=== PATIENT | female | born 1940 | race Caucasian/White ===

== ENCOUNTER 2019-02-19 08:44 | Observation (INO) | payer MEDICARE, BC ==
[2019-02-19 09:57] LABS: ADD MAN DIFF? NO
[2019-02-19] MEDS: ASPIRIN 325 MG TAB PO (09:57)
[2019-02-19] MEDS: NITROGLYCERIN 2% 1 GM OINT PKT TD (09:57)
[2019-02-19 10:03] LABS: BASOPHIL # 0.1 10^3/ul (0.0-0.1); BASOPHILS % 0.9 % (0.0-2.0); EOSINOPHILS % 0.7 % (0.0-7.0); HEMATOCRIT 37.1 % (37.0-47.0); HEMOGLOBIN 12.5 g/dl (12.0-16.0); LYMPHOCYTES % 18.2 % (15.0-51.0); MEAN CORPUSCULAR HEMOGLOBIN 28.5 pg (29.0-33.0); MEAN CORPUSCULAR HGB CONC 33.7 g/dl (32.0-37.0); MEAN CORPUSCULAR VOLUME 84.5 fl (82.0-101.0); MEAN PLATELET VOLUME 9.3 fl (7.4-10.4); MONOCYTE # 0.4 10^3/ul (0.3-0.9); MONOCYTES % 7.7 % (0.0-11.0); NEUTROPHIL # 4.1 10^3/ul (1.6-7.5); PLATELET COUNT 204 10^3/UL (140-415); RED BLOOD COUNT 4.39 10^6/ul (4.20-5.40); RED CELL DISTRIBUTION WIDTH 11.9 % (11.5-14.5)
[2019-02-19 10:03] LABS: WHITE BLOOD COUNT 5.7 10^3/ul (4.8-10.8)
[2019-02-19 10:20] LABS: ANION GAP 9 (5-13); BLOOD UREA NITROGEN 17 mg/dl (7-20); CARBON DIOXIDE 26 mmol/L (21-31); CHLORIDE 100 mmol/L (97-110); CREATININE 1.09 mg/dl (0.44-1.00); GLUCOSE 146 mg/dl (70-220); POTASSIUM 3.7 mmol/L (3.5-5.1); SODIUM 135 mmol/L (135-144)
[2019-02-19 10:31] LABS: TROPONIN-I < 0.012 ng/ml (0.000-0.120)
[2019-02-19] MEDS ORDERED: ONDANSETRON 4 MG INJ IV ×2 (13:30→16:30)
[2019-02-19 16:13] LABS: CREATINE KINASE 65 IU/L (23-200)
[2019-02-19 16:26] LABS: CK INDEX 0.8; CK-MB 0.49 ng/ml (0.0-2.4); TROPONIN-I < 0.012 ng/ml (0.000-0.120)
[2019-02-19] MEDS ORDERED: LORAZEPAM 2 MG INJ IV (16:30)
[2019-02-19] MEDS ORDERED: NACL 0.9% 3 ML SYG IV (16:30)
[2019-02-19] MEDS ORDERED: DOCUSATE SODIUM 100 MG CAP PO (16:30)
[2019-02-19] MEDS ORDERED: ACETAMINOPHEN 325 MG TAB PO ×2 (16:30→17:00)
[2019-02-19] MEDS ORDERED: HYDROCODONE/APAP (5/325) TAB PO (16:30)
[2019-02-19] MEDS ORDERED: NITROGLYCERIN (SL) 0.4 MG TAB SL (16:30)
[2019-02-19] MEDS ORDERED: hydrALAzine 20 MG INJ IV (16:30)
[2019-02-19] MEDS ORDERED: MAGNESIUM HYDROXIDE 30ML CUP PO (16:30)
[2019-02-19] MEDS ORDERED: ALBUTEROL/IPRATROPIUM (NEB) 3 ML AMP HHN (16:30)
[2019-02-19] MEDS ORDERED: GLUCAGON 1 MG INJ IM (17:00)
[2019-02-19] MEDS ORDERED: INSULIN ASPART [NOVOLOG] 3 ML PEN SC (17:00)
[2019-02-19] MEDS ORDERED: GLUCOSE GEL 15 GRAM TUBE PO ×2 (17:00)
[2019-02-19] MEDS ORDERED: GLUCOSE GEL 15 GRAM TUBE BUCCAL (17:00)
[2019-02-19] MEDS ORDERED: DEXTROSE 50% 50 ML SYRINGE IV ×2 (17:00)
[2019-02-19] MEDS: INSULIN ASPART [NOVOLOG] 3 ML PEN SC ×2 (17:31→20:45)
[2019-02-19 17:58] LABS: FREE T4 (FREE THYROXINE) 0.95 ng/dl (0.78-2.44)
[2019-02-19] MEDS: SOD CHLORIDE 0.45% 1,000 ML IV (18:15)
[2019-02-19] MEDS: RANITIDINE 150 MG TAB PO (20:44)
[2019-02-19] MEDS: INSULIN GLARGINE [LANTus] (100 UNITS/ML) SYG SC (20:49)
[2019-02-19 22:30] LABS: CREATINE KINASE 63 IU/L (23-200)
[2019-02-19 22:41] LABS: TROPONIN-I < 0.012 ng/ml (0.000-0.120)
[2019-02-19 23:00] LABS: CK INDEX 0.9; CK-MB 0.56 ng/ml (0.0-2.4)
[2019-02-20] MEDS: ACCU-CHEK XX (02:00)
[2019-02-20 05:32] LABS: ADD MAN DIFF? NO
[2019-02-20 05:43] LABS: BASOPHILS % 0.6 % (0.0-2.0); EOSINOPHILS # 0.2 10^3/ul (0.0-0.5); EOSINOPHILS % 3.7 % (0.0-7.0); HEMATOCRIT 34.2 % (37.0-47.0); HEMOGLOBIN 11.3 g/dl (12.0-16.0); LYMPHOCYTES # 1.6 10^3/ul (0.8-2.9); LYMPHOCYTES % 30.4 % (15.0-51.0); MEAN CORPUSCULAR HEMOGLOBIN 27.9 pg (29.0-33.0); MEAN CORPUSCULAR VOLUME 84.4 fl (82.0-101.0); MEAN PLATELET VOLUME 9.6 fl (7.4-10.4); MONOCYTE # 0.5 10^3/ul (0.3-0.9); NEUTROPHIL # 2.9 10^3/ul (1.6-7.5); NEUTROPHILS % 55.1 % (39.0-77.0); PLATELET COUNT 191 10^3/UL (140-415); RED BLOOD COUNT 4.05 10^6/ul (4.20-5.40); RED CELL DISTRIBUTION WIDTH 11.9 % (11.5-14.5)
[2019-02-20 05:43] LABS: WHITE BLOOD COUNT 5.2 10^3/ul (4.8-10.8)
[2019-02-20] MEDS: SOD CHLORIDE 0.45% 1,000 ML IV ×2 (05:47→08:19)
[2019-02-20 06:13] LABS: ANION GAP 4 (5-13); BLOOD UREA NITROGEN 20 mg/dl (7-20); CALCIUM 10.2 mg/dl (8.4-10.2); CARBON DIOXIDE 28 mmol/L (21-31); CHLORIDE 102 mmol/L (97-110); CHOL/HDL RATIO 3.6 RATIO; CHOLESTEROL 155 mg/dl (100-200); CREATININE 0.98 mg/dl (0.44-1.00); GLUCOSE 115 mg/dl (70-220); HDL CHOLESTEROL 42 mg/dl (33-92); LDL CHOLESTEROL,CALCULATED 83 mg/dl; MAGNESIUM 1.5 mg/dl (1.7-2.5); PHOSPHORUS 3.4 mg/dl (2.5-4.9); POTASSIUM 3.7 mmol/L (3.5-5.1); SODIUM 134 mmol/L (135-144); TRIGLYCERIDES 148 mg/dl (0-149)
[2019-02-20] MEDS: INSULIN ASPART [NOVOLOG] 3 ML PEN SC ×2 (08:00→12:16)
[2019-02-20] MEDS: AMLODIPINE 10 MG TAB PO ×2 (08:16→09:00)
[2019-02-20] MEDS: ASPIRIN (EC) 325 MG TAB PO (08:16)
[2019-02-20] MEDS: ATORVASTATIN 40 MG TAB PO (08:16)
[2019-02-20] MEDS: HYDROCHLOROTHIAZIDE 25 MG TAB PO (08:17)
[2019-02-20] MEDS: RANITIDINE 150 MG TAB PO (08:18)
[2019-02-20] MEDS: NEBIVOLOL 5 MG TAB PO (08:18)
[2019-02-20] MEDS: ALPRAZOLAM 0.5 MG TAB PO (08:33)
[2019-02-20] MEDS ORDERED: NON-FORMULARY/PATIENT OWN MED (Olmesartan-Amlodipine-HCTZ (Tribenzor) 1 TAB) ORAL (09:00)
[2019-02-20] MEDS ORDERED: LOSARTAN 50 MG TAB PO (09:00)
[2019-02-20] MEDS ORDERED: [UNRECOGNIZED DRUG - REMARK] XX (12:30)
[2019-02-20] MEDS: MAGNESIUM SULFATE 2 GM/50 ML 50 ML IVPB (13:06)
== END 2019-02-20 16:00 | disposition home health service (06) ==
LOC: E/R 08:44 → 6WM 13:17
DX: R07.9 Chest pain, unspecified (principal); I10 Essential (primary) hypertension; E78.00 Pure hypercholesterolemia, unspecified; E11.9 Type 2 diabetes mellitus without complications; Z79.82 Long term (current) use of aspirin; I25.10 Atherosclerotic heart disease of native coronary artery without angina pectoris; Z95.5 Presence of coronary angioplasty implant and graft; Z79.4 Long term (current) use of insulin
CPT/HCPCS: 71045; 80048; 80061; 82550; 82553; 82962; 83036; 83735; 84100; 84439; 84443; 84484; 85025; 93005; 93306; 96374; 97161; 97167; 99285-25; G0378